=== PATIENT | male | born 1950 | race Caucasian/White ===

== ENCOUNTER 2017-05-07 23:49 | Inpatient (IN) | payer OTHER ==
[2017-05-08 00:07] VITALS: BMI 24.3
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
[2017-05-08] MEDS ORDERED: IBUPROFEN 400 MG TABLET (FP) PO PRN (00:13)
[2017-05-08] MEDS ORDERED: MENTHOL/PHENOL 1 EACH UD MM PRN (00:13)
[2017-05-08] MEDS ORDERED: MAGNESIUM CITRATE 300 ML BOTTLE PO PRN (00:13)
[2017-05-08] MEDS ORDERED: chlordiazePOXIDE HCL 25 MG CAPSULE PO PRN (00:13)
[2017-05-08] MEDS ORDERED: chlordiazePOXIDE HCL 25 MG CAPSULE PO ONE (00:13)
[2017-05-08] MEDS ORDERED: MAG HYDROX/AL HYDROX/SIMETH 30 ML UNIT-DOSE CUP PO PRN (00:13)
[2017-05-08] MEDS ORDERED: LOPERAMIDE HCL 2 MG CAPSULE PO PRN (00:13)
[2017-05-08] MEDS ORDERED: MAGNESIUM HYDROX 2400MG/30ML ORAL SUSPENSION 30 ML CUP PO PRN (00:13)
[2017-05-08] MEDS ORDERED: ACETAMINOPHEN 325 MG TABLET (FP) PO PRN (00:13)
[2017-05-08] MEDS ORDERED: NICOTINE POLACRILEX 2 MG GUM BC PRN (00:13)
[2017-05-08] MEDS ORDERED: P-EPHED 60MG/TRIPROLIDI 2.5MG TABLET PO PRN (00:13)
[2017-05-08] MEDS ORDERED: guaiFENesin/D-METHORPHAN HB 10 ML UNIT-DOSE CUPS PO PRN (00:13)
[2017-05-08] MEDS: chlordiazePOXIDE HCL 25 MG CAPSULE PO SCH ×4 (05:03→22:36)
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
[2017-05-08] MEDS: NICOTINE 21 MG/24 HOURS TOPICAL PATCH TD SCH (10:14)
[2017-05-08] MEDS: PRENATAL VITAMINS W/ FOLIC ACID TABLET (FP) PO SCH (10:14)
[2017-05-08] MEDS: amLODIPine BESYLATE 10 MG TABLET (FP) PO SCH (10:14)
--- NOTE | 2017-05-08 18:46 | EKG ---
Test Reason : Blood Pressure : / mmHG Vent. Rate : 075 BPM Atrial Rate : 075 BPM P-R Int : 158 ms QRS Dur : 102 ms QT Int : 398 ms P-R-T Axes : 055 075 076 degrees QTc Int : 444 ms NORMAL SINUS RHYTHM NORMAL ECG WHEN COMPARED WITH ECG OF 08-MAY-2017 01:10, NO SIGNIFICANT CHANGE WAS FOUND Confirmed by MD CAROLEE, JERRI ([id number]) on 05/08/2017 6:45:48 PM Referred By: Bobby Christianson Confirmed By:JERRI ZARCO MD
--- NOTE | 2017-05-08 18:46 | EKG ---
Test Reason : Blood Pressure : / mmHG Vent. Rate : 085 BPM Atrial Rate : 085 BPM P-R Int : 164 ms QRS Dur : 102 ms QT Int : 382 ms P-R-T Axes : 080 069 060 degrees QTc Int : 454 ms POOR DATA QUALITY, INTERPRETATION MAY BE ADVERSELY AFFECTED NORMAL SINUS RHYTHM NORMAL ECG NO PREVIOUS ECGS AVAILABLE Confirmed by MD CAROLEE, JERRI ([id number]) on 05/08/2017 6:45:55 PM Referred By: Bobby Christianson Confirmed By:JERRI ZARCO MD
--- NOTE | 2017-05-08 19:25 | PN ---
S CIWA - CIWA Score Nausea/Vomitin Muscle Tremors: 3 Anxiety: 3 Agitation: 3 Paroxysmal Sweats: 3 Orientation: 0-Oriented Tacttile Disturbances: 0-None Auditory Disturbances: 0-None Visual Disturbances: 0-None Headache: 0-None Present CIWA-Ar Total Score: 15 BHS Progress Note (SOAP) Subjective: sleep disturbance shakes sweats Objective: 05/08/17 19:20 A & O x 3 Ambulating without distress in room Vital Signs Temperature 98.4 F 05/08/17 18:05 Pulse Rate 81 05/08/17 18:05 Respiratory Rate 19 05/08/17 18:05 Blood Pressure 122/65 05/08/17 18:05 O2 Sat by Pulse Oximetry (%) Assessment: 05/08/17 19:21 withdrawal sx Plan: continue detox increase hydration
[2017-05-08] MEDS: THIAMINE HCL 100 MG TABLET (FP) PO SCH (22:35)
[2017-05-08] MEDS: ZOLPIDEM TARTRATE 5 MG TABLET PO PRN (22:36)
[2017-05-08] MEDS: ATORVASTATIN CA 10 MG TABLET (FP) PO SCH (22:36)
[2017-05-08] MEDS: hydrOXYzine PAMOATE 50 MG CAPSULE (FP) PO PRN (22:38)
[2017-05-09] MEDS: chlordiazePOXIDE HCL 25 MG CAPSULE PO SCH ×4 (05:49→22:18)
[2017-05-09 10:11] LABS: HEMATOCRIT 39.6 % (35.4-49); HEMOGLOBIN 13.2 GM/dL (11.7-16.9); MCH 31.6 pg (25.7-33.7); MCHC 33.3 g/dl (32.0-35.9); MEAN CELL VOLUME 94.8 fl (80-96); PLATELET COUNT 79 K/MM3 (134-434); RBC 4.17 M/mm3 (4.00-5.60); RDW 13.6 % (11.9-15.9); WHITE BLOOD COUNT 3.7 K/mm3 (4.0-10.0)
[2017-05-09 10:16] LABS: ALBUMIN 3.7 g/dl (3.4-5.0); ANION GAP 8 (8-16); BLOOD UREA NITROGEN 13 mg/dL (7-18); CALCIUM 8.3 mg/dL (8.5-10.1); CHLORIDE 105 mmol/L (98-107); CO2 27 mmol/L (21-32); CREATININE 0.7 mg/dL (0.7-1.3); GLUCOSE,RANDOM 125 mg/dL (74-106); POTASSIUM 3.2 mmol/L (3.5-5.1); SGPT/ALT 99 U/L (12-78); SODIUM 140 mmol/L (136-145)
[2017-05-09 10:18] LABS: ALK PHOS 72 U/L (45-117); SGOT/AST 113 U/L (15-37)
[2017-05-09] MEDS: amLODIPine BESYLATE 10 MG TABLET (FP) PO SCH (10:47)
[2017-05-09] MEDS: PRENATAL VITAMINS W/ FOLIC ACID TABLET (FP) PO SCH (10:47)
[2017-05-09] MEDS: NICOTINE 21 MG/24 HOURS TOPICAL PATCH TD SCH (10:48)
--- NOTE | 2017-05-09 12:14 | PN ---
[facility] CIWA - CIWA Score Nausea/Vomitin-No Nausea/No Vomiting Muscle Tremors: 4-Moderate,w/Arms Extend Anxiety: 4-Mod. Anxious/Guarded Agitation: 4-Moderately Restless Paroxysmal Sweats: 1-Minimal Palms Moist Orientation: 0-Oriented Tacttile Disturbances: 3-Moderate Itch/Numb/Burn Auditory Disturbances: 0-None Visual Disturbances: 0-None Headache: 0-None Present CIWA-Ar Total Score: 16 BHS Progress Note (SOAP) Subjective: ANXIETY,SWEATS,DIARRHEA. Objective: 05/09/17 12:13 Vital Signs Temperature 97.0 F L 05/09/17 10:00 Pulse Rate 79 05/09/17 10:00 Respiratory Rate 20 05/09/17 10:00 Blood Pressure 120/75 05/09/17 10:00 O2 Sat by Pulse Oximetry (%) Laboratory Last Values WBC 3.7 K/mm3 (4.0-10.0) L 05/09/17 06:30 RBC 4.17 M/mm3 (4.00-5.60) 05/09/17 06:30 Hgb 13.2 GM/dL (11.7-16.9) 05/09/17 06:30 Hct 39.6 % (35.4-49) 05/09/17 06:30 MCV 94.8 fl (80-96) 05/09/17 06:30 MCH 31.6 pg (25.7-33.7) 05/09/17 06:30 MCHC 33.3 g/dl (32.0-35.9) 05/09/17 06:30 RDW 13.6 % (11.9-15.9) 05/09/17 06:30 Plt Count 79 K/MM3 (134-434) L 05/09/17 06:30 MPV 8.0 fl (7.5-11.1) 05/09/17 06:30 Sodium 140 mmol/L (136-145) 05/09/17 06:30 Potassium 3.2 mmol/L (3.5-5.1) L 05/09/17 06:30 Chloride 105 mmol/L (98-107) 05/09/17 06:30 Carbon Dioxide 27 mmol/L (21-32) 05/09/17 06:30 Anion Gap 8 (8-16) 05/09/17 06:30 BUN 13 mg/dL (7-18) 05/09/17 06:30 Creatinine 0.7 mg/dL (0.7-1.3) 05/09/17 06:30 Creat Clearance w eGFR > 60 (>60) 05/09/17 06:30 Random Glucose 125 mg/dL (74-106) H 05/09/17 06:30 Calcium 8.3 mg/dL (8.5-10.1) L 05/09/17 06:30 Total Bilirubin 1.0 mg/dL (0.2-1.0) 05/09/17 06:30 AST 113 U/L (15-37) H 05/09/17 06:30 ALT 99 U/L (12-78) H 05/09/17 06:30 Alkaline Phosphatase 72 U/L (45-117) 05/09/17 06:30 Total Protein 6.0 g/dl (6.4-8.2) L 05/09/17 06:30 Albumin 3.7 g/dl (3.4-5.0) 05/09/17 06:30 Assessment: 05/09/17 12:13 WITHDRAWAL SX Plan: CONTINUE DETOX IMODIUM PRN
[2017-05-09] MEDS: hydrOXYzine PAMOATE 50 MG CAPSULE (FP) PO PRN (12:22)
[2017-05-09] MEDS: ATORVASTATIN CA 10 MG TABLET (FP) PO SCH (22:18)
[2017-05-09] MEDS: THIAMINE HCL 100 MG TABLET (FP) PO SCH (22:18)
[2017-05-09] MEDS: ZOLPIDEM TARTRATE 5 MG TABLET PO PRN (22:20)
[2017-05-10] MEDS: chlordiazePOXIDE 5 MG CAPSULE PO SCH ×3 (05:51→17:38)
[2017-05-10 09:37] LABS: URINE APPEARANCE CLEAR; URINE BILIRUBIN NEGATIVE (NEGATIVE); URINE BLOOD NEGATIVE (NEGATIVE); URINE COLOR LTYELLOW; URINE GLUCOSE (UA) NEGATIVE (NEGATIVE); URINE KETONE NEGATIVE (NEGATIVE); URINE LEUK ESTERASE NEGATIVE (NEGATIVE); URINE NITRITE NEGATIVE (NEGATIVE); URINE PROTEIN NEGATIVE (NEGATIVE); URINE UROBILINOGEN NEGATIVE mg/dL (0.2-1.0)
[2017-05-10] MEDS: PRENATAL VITAMINS W/ FOLIC ACID TABLET (FP) PO SCH (10:37)
[2017-05-10] MEDS: NICOTINE 21 MG/24 HOURS TOPICAL PATCH TD SCH (10:37)
[2017-05-10] MEDS: amLODIPine BESYLATE 10 MG TABLET (FP) PO SCH (10:37)
--- NOTE | 2017-05-10 11:38 | PN ---
BHS Progress Note (SOAP) Subjective: ANXIETY,SWEATS,FATIGUE. Objective: 05/10/17 11:38 Vital Signs Temperature 97.4 F L 05/10/17 10:06 Pulse Rate 76 05/10/17 10:06 Respiratory Rate 18 05/10/17 10:06 Blood Pressure 127/79 05/10/17 10:06 O2 Sat by Pulse Oximetry (%) Laboratory Last Values WBC 3.7 K/mm3 (4.0-10.0) L 05/09/17 06:30 RBC 4.17 M/mm3 (4.00-5.60) 05/09/17 06:30 Hgb 13.2 GM/dL (11.7-16.9) 05/09/17 06:30 Hct 39.6 % (35.4-49) 05/09/17 06:30 MCV 94.8 fl (80-96) 05/09/17 06:30 MCH 31.6 pg (25.7-33.7) 05/09/17 06:30 MCHC 33.3 g/dl (32.0-35.9) 05/09/17 06:30 RDW 13.6 % (11.9-15.9) 05/09/17 06:30 Plt Count 79 K/MM3 (134-434) L 05/09/17 06:30 MPV 8.0 fl (7.5-11.1) 05/09/17 06:30 Sodium 140 mmol/L (136-145) 05/09/17 06:30 Potassium 3.2 mmol/L (3.5-5.1) L 05/09/17 06:30 Chloride 105 mmol/L (98-107) 05/09/17 06:30 Carbon Dioxide 27 mmol/L (21-32) 05/09/17 06:30 Anion Gap 8 (8-16) 05/09/17 06:30 BUN 13 mg/dL (7-18) 05/09/17 06:30 Creatinine 0.7 mg/dL (0.7-1.3) 05/09/17 06:30 Creat Clearance w eGFR > 60 (>60) 05/09/17 06:30 Random Glucose 125 mg/dL (74-106) H 05/09/17 06:30 Calcium 8.3 mg/dL (8.5-10.1) L 05/09/17 06:30 Total Bilirubin 1.0 mg/dL (0.2-1.0) 05/09/17 06:30 AST 113 U/L (15-37) H 05/09/17 06:30 ALT 99 U/L (12-78) H 05/09/17 06:30 Alkaline Phosphatase 72 U/L (45-117) 05/09/17 06:30 Total Protein 6.0 g/dl (6.4-8.2) L 05/09/17 06:30 Albumin 3.7 g/dl (3.4-5.0) 05/09/17 06:30 Urine Color Ltyellow 05/10/17 08:00 Urine Appearance Clear 05/10/17 08:00 Urine pH 7.0 (5.0-8.0) 05/10/17 08:00 Ur Specific [place] 1.015 (1.001-1.035) 05/10/17 08:00 Urine Protein Negative (NEGATIVE) 05/10/17 08:00 Urine Glucose (UA) Negative (NEGATIVE) 05/10/17 08:00 Urine Ketones Negative (NEGATIVE) 05/10/17 08:00 Urine Blood Negative (NEGATIVE) 05/10/17 08:00 Urine Nitrite Negative (NEGATIVE) 05/10/17 08:00 Urine Bilirubin Negative (NEGATIVE) 05/10/17 08:00 Urine Urobilinogen Negative mg/dL (0.2-1.0) 05/10/17 08:00 Ur Leukocyte Esterase Negative (NEGATIVE) 05/10/17 08:00 RPR Titer Nonreactive (NONREACTIVE) 05/09/17 06:30 K+ = 3.2 Assessment: 05/10/17 11:41 WITHDRAWAL SX Plan: CONTINUE DETOX
[2017-05-10] MEDS ORDERED: POTASSIUM CHLORIDE ORAL LIQUID 20 MEQ/15 ML PO ONE (11:39)
[2017-05-10] MEDS ORDERED: POTASSIUM CHLORIDE ORAL LIQUID 20 MEQ/15 ML PO SCH (22:00)
[2017-05-10] MEDS: THIAMINE HCL 100 MG TABLET (FP) PO SCH (22:15)
[2017-05-10] MEDS: ZOLPIDEM TARTRATE 5 MG TABLET PO PRN (22:15)
[2017-05-10] MEDS: ATORVASTATIN CA 10 MG TABLET (FP) PO SCH (22:15)
[2017-05-10] MEDS: chlordiazePOXIDE HCL 10 MG CAPSULE PO SCH (22:15)
[2017-05-11] MEDS ORDERED: chlordiazePOXIDE HCL 10 MG CAPSULE PO SCH (05:00)
[2017-05-11] MEDS: chlordiazePOXIDE HCL 10 MG CAPSULE PO SCH (06:03)
[2017-05-11 06:46] VITALS: BP 124/75; PULSE 71; TEMP 97.1
--- NOTE | 2017-05-11 08:24 | DS ---
[facility] Detox Discharge Summary Admission Date: 05/08/17 Discharge Date: 05/11/17 - History Present History: Alcohol Dependence Additional Comments: DETOX COMPLETED. PT HAS PRIMARY CARE AT [facility] WITH - Physical Exam Results Vital Signs: Vital Signs Temperature 97.1 F L 05/11/17 06:45 Pulse Rate 71 05/11/17 06:45 Respiratory Rate 19 05/11/17 06:45 Blood Pressure 124/75 05/11/17 06:45 O2 Sat by Pulse Oximetry (%) - Treatment Hospital Course: Detox Protocol Followed, Detoxed Safely, Responded well, Discharged Condition Good - Medication Discharge Medications: Ambulatory Orders Amlodipine Besylate 10 mg PO DAILY 05/07/17 Atorvastatin Ca [Lipitor] 10 mg PO HS 05/07/17 - Diagnosis (1) Alcohol dependence with uncomplicated withdrawal Status: Acute (2) HLD (hyperlipidemia) Status: Chronic Qualifiers: Hyperlipidemia type: unspecified Qualified Code(s): E78.5 - Hyperlipidemia , unspecified (3) HTN (hypertension) Status: Chronic Qualifiers: Hypertension type: essential hypertension Qualified Code(s): I10 - Essential (primary) hypertension (4) Hepatitis C Status: Chronic (5) Nicotine dependence Status: Acute Qualifiers: Nicotine product type: cigarettes Substance use status: in withdrawal Qualified Code(s): F17.213 - Nicotine dependence, cigarettes, with withdrawal
== END 2017-05-11 07:18 | disposition home or self-care (01) | DRG 897 ==
LOC: YASAS 23:49 → Y3N 05-08 00:08
PROVIDERS: ADMIT Internal Medicine; ATTEND Internal Medicine
PROC: HZ2ZZZZ Detoxification Services for Substance Abuse Treatment (ICD-10-PCS; principal; 2017-05-08)
DX: F10.230 Alcohol dependence with withdrawal, uncomplicated (principal); F10.280 Alcohol dependence with alcohol-induced anxiety disorder; F10.282 Alcohol dependence with alcohol-induced sleep disorder; F17.213 Nicotine dependence, cigarettes, with withdrawal; I10 Essential (primary) hypertension; E78.5 Hyperlipidemia, unspecified; B18.2 Chronic viral hepatitis C; R00.0 Tachycardia, unspecified; Z86.69 Personal history of other diseases of the nervous system and sense organs; Z91.5 Personal history of self-harm
CPT/HCPCS: 36415; 80053; 81003; 85027; 86593; 93005; 93010

== ENCOUNTER 2018-08-01 12:39 | Inpatient (IN) | payer OTHER | END 2018-08-05 10:18 | disposition home or self-care (01) | LOC: YASAS 12:39 → Y6N 15:03 ==